=== PATIENT | female | born 1985 | race Caucasian/White ===

== ENCOUNTER 2016-10-14 15:00 | Emergency (ER) | payer MEDICAID ==
--- NOTE | ~2016-10-14 | ER ---
PATIENT'S NAME: JAYSON HUTTON [facility] AGE: 31 Y [address] ROOM: [place] [id number] LOCATION: [facility] ADMIT DATE: 10/14/2016 ER/Outpatient Report DISCHARGE DATE: 10/14/2016 FAMILY PHYSICIAN: Carlo Robles MD ATTENDING PHYSICIAN: Anrdew Smith Time Seen: 1510 hours. CHIEF COMPLAINT: Right hip pain. HISTORY OF PRESENT ILLNESS: The patient is a 31-year-old female who said on Saturday night late she was coming down some stairs and twisted, she said she did not fall completely. Then, when she woke this morning, she had pain in her right hip. She said she had quite a few alcoholic drinks prior to the injury. She denied any numbness or tingling down her right leg. ALLERGIES: NO MEDICINAL ALLERGIES. HOME MEDICATIONS: Did take one hydrocodone about 8 o'clock this morning. MEDICAL HISTORY: Includes ADHD. SURGERIES: Include a , appendectomy, breast augmentation, tubal ligation. SOCIAL HISTORY: Nonsmoker. Alcohol, fairly frequent. REVIEW OF SYSTEMS: GENERAL: General health considered good. HEAD/EENT: No complaints of any head or neck pain. RESPIRATORY: Negative. CARDIOVASCULAR: Negative. MUSCULOSKELETAL: Includes posterior right hip pain. NEUROLOGIC: No numbness or tingling to her lower extremities. OBJECTIVE: VITAL SIGNS: Blood pressure 113/75, her temperature was 97.6, her pulse 73, respiratory rate 20, O2 sats 96%. GENERAL: The patient was noted to walk with a slight limp to the exam room. PATIENT'S NAME: JAYSON HUTTON [facility] AGE: 31 Y [address] ROOM: [place], [place] [address] LOCATION: [facility] ADMIT DATE: 10/14/2016 ER/Outpatient Report DISCHARGE DATE: 10/14/2016 FAMILY PHYSICIAN: Carlo Robles MD ATTENDING PHYSICIAN: Andrew Smith She was well oriented. MUSCULOSKELETAL: Exam of the right hip showed some tenderness in the right posterior gluteal area. She had no central spine tenderness. No real tenderness or pain with external and internal rotation of her hip. NEUROLOGIC: She had good sensation distally. LABORATORY DATA AND X-RAYS: X-rays of right hip and pelvis unremarkable for any bony injuries. ASSESSMENT: Posterior right hip pain. PLAN: She was given two [place] here in the emergency room. She was given a script for [place] 20 of them to take one or two every 4 to 6 hours. Recommended to ice 10 to 15 minutes every couple of hours over the next 48 hours. Follow up with primary care if it does not improve. The patient verbalized understanding of our x-ray findings, recommendations, and agreed. OLGA HUGGINS FOR MD RAINER VINCENT/modl /[id number] d: 10/14/162132 t: 10/31/16 0902, OUTPATIENT REPORT
== END 2016-10-14 15:51 | disposition disaster alternative care site (69) ==
LOC: GACC 15:00
DX: M25.551 Pain in right hip (principal); Z90.49 Acquired absence of other specified parts of digestive tract; Z98.51 Tubal ligation status; Z98.890 Other specified postprocedural states; X50.1XXA Overexertion from prolonged static or awkward postures, initial encounter